=== PATIENT | female | born 1980 | race Caucasian/White ===

== ENCOUNTER 2021-11-01 05:43 | Day surgery (SDC) | payer SELFPAY, OTHER ==
[2021-10-28 15:32] LABS: Hematocrit 41.7 % (37-47); Hemoglobin 13.8 g/dL (12.0-15.0); Mean Corp Hgb Conc 33.1 g/dL (32-36); Mean Corpuscular Hgb 28.8 pg (27.0-32.0); Mean Corpuscular Volume 86.9 fL (81-99); Platelet Count 286 K/mm3 (150-450); RBC Distribution Width CV 12.7 % (11.6-14.6); White Blood Count 9.2 K/mm3 (4.4-11.0)
--- NOTE | 2021-10-29 10:18 | HP.PCM_ITS ---
History and Physical Date of Admission: 10/29/21 MR#:[id number]:[id number]: BOBY BRARRep #:[id number] Provider:Dr. Dipti Fonseca, DOAge/Sex: 41/F [facility] Vital Signs 10/22/21 13:09 Height 5 ft 2 in Weight: 149 lb 4 oz BMI 27.3 BP 130/82 H Intake Visit Reasons: consult for TBL combo surg. with Carlos? Allergies No Known Allergies Allergy (Verified 10/22/21 13:04) Medications NK 10/22/21 [History Confirmed 10/22/21] PFSH Surgical History (Updated 10/22/21 @ 13:07 by Dinah Rosenthal) S/P tubal ligation Social History (Updated 10/22/21 @ 13:07 by Dinah Rosenthal) Smoking Status: Never smoker alcohol intake: never substance use type: does not use caffeine: Yes what type of physical activity do you participate in: none additional social history: [facility] consult for TBL combo surg. with Carlos? Details: BOBY BRAR is a 41 year old who presents for tubal ligation consult. She is scheduled for a midurethral sling procedure with Dr. Gonzalez next Thursday and also desires sterility. She has has 7 vaginal deliveries and 1 tubal pr egnancy. She is unsure what side, but thinks she may only have one tube left. Pregancy History 8 Elective abortions Hx Para 7 Spontaneous abortions Hx # Term Pregnancies Ectopic pregnancies Hx # Pregnancies Multiple births # of living children Past Pregnancies Del. Date Name GA/Weeks Outcome Route Bth Weight Infant Gen Labor Lgth Anesthesia Del Locatn Provider FOB Unknown Cat Unknown Catarino Unknown Makayla Unknown Ayo Unknown Nazanin Unknown Leo Unknown Margarito ROS Const ROS Unobtainable: All systems reviewed & are unremarkable except as noted in H Resp Resp: Reports system reviewed and no additional complaints, except as documented; Denies cough GI GI: Reports as per HPI Psych Psych: Reports system reviewed and no additional complaints, except as documented Exam Const General: cooperative, healthy appearing, comfortable and no acute distress Resp Effort & Inspection: normal respiratory effort Skin General: no rashes or lesions noted Psych Appearance: grossly normal Speech and Movement: speech and movement normal Coding Level of Care Code Off vis,new,level 3 Diagnoses Incontinence of urine R32 Prolapsed bladder Contraceptive management Z30.9 Assessment and Plan Assessment and Plan (1) Incontinence of urine: Status: Acute (2) Prolapsed bladder: Status: Acute (3) Contraceptive management: Plan - Dr. Dipti Fonseca DO: I spent 20 minutes in this visit, with more than 50% of the time devoted to patient counseling. During this time we discussed the risks, benefits, and alternatives to tubal ligation. we discussed the permanency and that the procedure is irreversible. plan for laparoscopic salpingectomy either unilaterally or bilaterally if a second tube is still patent after her ectopic surgery. UPDATE- I have seen the patient and performed any clinically relevant updates to the history and physical exam. Dipti Fonseca DO
[2021-11-01] VITALS (9 sets, daily range): BP systolic 104–122; BP diastolic 61–73; PULSE 54–64; RESP 16; TEMP 36.2–36.8; O2SAT 98–100; BMI 26.6
--- NOTE | 2021-11-01 | FALS_PTH ---
PATIENT: BOBY BRAR LOC: [facility] [place] U#:[id number] AGE/SX: 41/F ROOM: RE11/01/[address]: Dr. Noel Gonzalez MD : 1980 BED: DIS: 11/01/2021 SPEC #: [id number] RECD: 11/01/21 11:31 STATUS: SINA PERES #: [id number] GUSTABO: 11/01/21 00:[address]: Noel Gonzalez DEPT: SURGICAL PATHOLOGY RECD BY: Jorgito Durham ENTERED: 11/01/21 11:31 SP TYPE: FALL TUBES OTHR DR: DO Dr. Rodrigo Watson MD Tissues: Fallopian tube Procedures: Surgery Specimen Level II HEADER OPERATION: Bilateral laparoscopic salpingectomy PRE-OP DIAGNOSIS: Sterilization TISSUE SUBMITTED: Bilateral fallopian tubes MICROSCOPIC DIAGNOSIS Bilateral fallopian tubes, salpingectomy: Bilateral fallopian tubes, no pathologic diagnosis. SJ:keanu 11/04/2021 MICROSCOPIC DESCRIPTION Slides are reviewed. GROSS DESCRIPTION Received in fixative is one container labeled with the patient's name and designated bilateral fallopian tubes. The specimen consists of bilateral fallopian tubes including fimbrial ends each measuring 6 cm in length and 0.5 cm in diameter. The fallopian tubes are not identified as right or left. Sections reveal unremarkable cut surfaces. Clinical Care Leader sections are submitted in two cassettes with each cassette containing one fallopian tube. / Antony 11/01/2021 TC:4 CPT: 77774 x2
[2021-11-01 06:26] LABS: Internal QC Validated? YES +Cl - CLEAR BKGD; Pregnancy, Urine Negative Negative
[2021-11-01] MEDS: Lactated Ringers 1,000 ML 15 ML IV (06:32)
--- NOTE | 2021-11-01 07:23 | PCM.DC ---
Discharge Instructions Diet Discharge Diet: No restrictions Activity Discharge Activity: Return to Normal Activity, May Not Drive (for two weeks or while taking narcotic pain medications.), May Shower and May Take a Tub Bath (in 7 days) May resume sexual activity in: 1 week Weight Bearing Status: Full weight bearing Dressing / Incision Call your doctor if you observe: Using more than 1 pad per hour, Shortness of breath, Chest pain and Uncontrolled pain Suture Line Care: Avoid Pulling/Pushing and Avoid Pinching/Bending Remove Dressing in: 1 week (if present) Cleanse incision/area with: Soap & Water and Keep Dressing Clean & Dry Follow Up Care Please Follow Up With: Dipti Fonseca DO When: Call to make an appointment with your doctor for a follow up incision check in 1-2 weeks. Test Results: Test results from this visit will be discussed in further detail at your follow-up appointment, if applicable. Discharge Plan Admission Primary Reason for Your Visit: tubal removal and sling procedure Attending Provider: Noel Gonzalez Primary Care Provider: Rodrigo Cervantes Consulting Providers: Dipti Fonseca Discharge Orders/Prescriptions Prescriptions: New ibuprofen 800 mg tablet 800 mg PO Q8H PRN (Reason: pain) 7 Days Qty: 30 RF: 0 oxycodone-acetaminophen [Percocet] 5-325 mg tablet 1 tab PO Q6H PRN (Reason: Pain (Scale Score 7-10)) 3 Days Qty: 18 RF: 0 No Action NK RF: 0 Referrals / Follow Up: Rodrigo Cervantes MD [Primary Care Provider] - Disposition Disposition (needs filled in before D/C Order can be placed): Home, Self Care
[2021-11-01] MEDS: Lidocaine 1% /Epi 1:100 (50ml) 50 ML VIAL (08:42)
[2021-11-01] MEDS: Bupivacaine 0.25% 30 ML Vial (08:42)
--- NOTE | 2021-11-01 08:52 | HP.PCM_ITS ---
HPI - General General Date of Admission: 10/29/21 HPI Narrative BOBY BRAR, is a 41 F who presents for placement of tension-free vaginal sling and also can have a combined procedure with gynecology. [facility] Medical History (Updated 10/25/21 @ 10:18 by America Mohan) Bladder disease Leg cramps Non-smoker Wears glasses Home Medications ciprofloxacin HCl [Cipro] 500 mg PO BID #10 tab 11/01/21 [Rx Last Taken Unknown] ibuprofen 800 mg PO Q8H PRN 7 Days #30 tab 11/01/21 [Rx Last Taken Unknown] oxycodone-acetaminophen [Percocet] 1 tab PO Q6H PRN 3 Days #18 tab 11/01/21 [Rx Last Taken Unknown] Allergy/AdvReac Type Severity Reaction Status Date / Time No Known Allergies Allergy Verified 11/01/21 06:19 Surgical History (Updated 11/01/21 @ 07:[address] Dipti Fonseca, DO) S/P tubal ligation Social History (Updated 10/22/21 @ 13:07 by Dinah Rosenthal) Smoking Status: Never smoker alcohol intake: never substance use type: does not use caffeine: Yes what type of physical activity do you participate in: none additional social history: -Arvind Vital Signs Vital Signs Vital Signs: 11/01/21 06:21 Temperature 98.2 F Temperature Source Temporal Pulse Rate 64 Respiratory Rate 16 Respiratory Pattern Normal Blood Pressure 119/69 Blood Pressure Mean 85 Blood Pressure Source Monitor Blood Pressure Position Semi-Fowlers Blood Pressure Location Right Arm Pulse Ox 98 Oxygen Delivery Method Room Air Weight Weight: 66 kg Body Mass Index (BMI) 26.6 Results Lab / Micro Data Result Diagrams: 10/28/21 15:05 Labs: Laboratory Results - last 24 hr 11/01/21 06:00: Urine Test Negative
--- NOTE | 2021-11-01 08:53 | OP.PCM_ITS ---
Report of Operation Date of Procedure: 11/01/21 Pre-Operative Diagnosis: Stress incontinence Post-Operative Diagnosis: The same Surgery/Procedure Performed:: TVT Sling Description of Surgical Findings:: Patient presents today for placement of a tension-free vaginal sling, she has a diagnosis of incontinence and has been evaluated in the preoperative setting. We discussed how the procedure will be done what to expect afterwards. She understands is possible she may need a catheter in the short-term. We discussed the risk of bleeding and also the possibility of infection with the placement of the sling. We discussed the fact that we can be using artificial mesh and that there is a small risk of infection, erosion into the urethra, vaginal area, bladder and a small risk that she may require surgery down the road to address any problems or erosions with the mesh in the long-term. She was also given no guarantees as to how well the sling would work and that her incontinence may not improved to her satisfaction. After reviewing this with the patient she agreed to proceed with the placement of the sling. Patient was taken back to the operating room, after smooth induction of general anesthesia she was placed in dorsolithotomy position. She underwent vaginal prep and was placed in dorsolithotomy position. A Brady catheter was placed into the bladder and Inflated with 10 cc of sterile water into the balloon. I then marked out the bladder neck with a marking pen and marked out the mid urethra. The urethra was then infiltrated with lidocaine with 1:1000 epinephrine, after the injecting into the urethra then a midline incision was made in the urethra long enough to create a space for the trocar. I then used curved Metzenbaum scissors to dissect periurethrally up to the right side underneath the pubic bone, and then dissect periurethrally up to the left side underneath the pubic bone creating the tunnel for the sling. I then went up to the pubic bone and the patient was in Trendelenburg position and marked two incision site 2 cm from the midline on the left and right side. I then infiltrated the skin with lidocaine and then made a small stab incision in the right and left side exactly where the recinos were above the pubic bone. Making sure that the bladder was completely empty I then guided the suprpubid desera trocar top-down on the right side first coming behind the pubic bone following it into the incision below the urethra. Once the suprapubic trocar was passed then I deflated the balloon and remove the Brady catheter went into the bladder with a 70 degree lens and inspected the bladder and there was no perforation damage or injury to the bladder, no damage to the ureter, and no damage to the urethra. I then hooked the end of the desara sling to the suprapubic trocar and advanced it up through the tunnel and then put a snap on the end of the sling. I then went to the other side to pass the sling. The 18fr Brady catheter was replaced into the bladder with 10 cc of water into the balloon and then drained the bladder completely and then I guided the suprapubic trocar down on the left side from top down behind the pubic bone into the incision below the urethra. I then deflated the balloon removed the Brady catheter and performed a cystoscopy again and inspected the bladder with a 70 degree there was no injury to the bladder, the ureter, or the urethra on inspection. I then grabbed the other end of the sling and using the suprapubic trocar pulled the sling on the other side and put a snap on the sling end. I then put a snap in the middle the sling and then both ends of the slings were then pulled up and then the sling was tensioned below the urethra ensuring that the sling was flat that there was no kinking or pulling or twisting and laid nicely tension-free underneath the urethra. Then both ends of the slings were cut and then the plastic sheath covering the mesh was removed deploying the sling, the excess mesh was then trimmed from the suprapubic area and the mesh ends were dunked down deep in the subcutaneous fat. The Brady catheter was removed and we checked the bladder with a 30 and 70 degree lens making sure there is no injury to the urethra, sarah dder and no perforation with a mesh. The urine was nice and clear with no blood. I then closed the incision below the urethra with a running 3-0 Vicryl and then closed the 2 suprapubic incisions with interrupted 4-0 Monocryl. The bladder was left empty anesthetic was reversed and she was taken back to the PACU and will undergo a voiding trial before discharge. Surgeon: berlin Type of Anesthesia: General Drains: no catheters Admit VTE Documentation VTE Present on Admission: No VTE Mechan Device Prophylaxis: SCD's VTE Pharm Prophylaxis ordered?: No
--- NOTE | 2021-11-01 08:53 | PCM.DC ---
Discharge Instructions Diet Discharge Diet: No restrictions Activity May resume sexual activity in: 1 week Weight Bearing Status: Full weight bearing Dressing / Incision Call your doctor if you observe: Using more than 1 pad per hour, Shortness of breath, Chest pain and Uncontrolled pain Suture Line Care: Avoid Pulling/Pushing and Avoid Pinching/Bending Cleanse incision/area with: Soap & Water and Keep Dressing Clean & Dry Follow Up Care Please Follow Up With: Dipti Fonseca DO Test Results: Test results from this visit will be discussed in further detail at your follow-up appointment, if applicable. Discharge Plan Admission Primary Reason for Your Visit: tubal removal and sling procedure Attending Provider: Noel Gonzalez Primary Care Provider: Rodrigo Cervantes Consulting Providers: Dipti Fonesca Discharge Orders/Prescriptions Prescriptions: New ibuprofen 800 mg tablet 800 mg PO Q8H PRN (Reason: pain) 7 Days Qty: 30 RF: 0 oxycodone-acetaminophen [Percocet] 5-325 mg tablet 1 tab PO Q6H PRN (Reason: Pain (Scale Score 7-10)) 3 Days Qty: 18 RF: 0 ciprofloxacin HCl [Cipro] 500 mg tablet 500 mg PO BID Qty: 10 RF: 0 Referrals / Follow Up: Noel Gonzalez MD [STAFF PHYSICIAN] - Rodrigo Cervantes MD [Primary Care Provider] - Disposition Disposition (needs filled in before D/C Order can be placed): Home, Self Care
--- NOTE | 2021-11-01 09:24 | OP.PCM_ITS ---
Problems Associated Problem List Diagnoses (1) Contraceptive management: (2) Prolapsed bladder: (3) Incontinence of urine: Report of Operation Date of Procedure: 11/01/21 Pre-Operative Diagnosis: desires permanent sterility Post-Operative Diagnosis: desires permanent sterility Surgery/Procedure Performed:: laparoscopic bilateral salpingectomy Description of Surgical Findings:: Patient was taken in the operating room and was placed under general anesthesia was prepped and draped in normal sterile fashion in the dorsal lithotomy position. Bladder was drained of clear urine and SCDs were on preoperatively. Uterus was sounded and a uterine manipulator was placed after dilating. Attention was then paid to the abdominal portion of the procedure and the umbilicus was elevated injected with Marcaine and after a 5 mm incision was made and the 5 mm laparoscope was inserted into the abdomen and entered into the abdomen confirmed to be intra-abdominal with a low opening pressure of less than 5 mmHg. Abdomen was insufflated with CO2 gas and a 5 mm optical trocar was placed under direct visualization. A left lower quadrant 5 mm port and a 5 mm port, lateral to umbilicus, were placed under direct visualization. Uterus was well visualized and bilateral fallopian tubes identified and bilateral tubes were elevated and transecting across the mesosalpinx and the attachment to the uterine corpus bilaterally the tubes were removed without complication using the ligasure device. Excellent hemostasis was noted. Fallopian tubes were removed through the lower port sites without complication. Liver and upper abdomen were visualized notably within normal limits and no other gross abnormalities were seen in the abdomen. All instruments removed from the abdomen after gas was desufflated. Port sites were closed with 3-0 Monocryl Steri's and op sites were applied. All instruments removed from the vagina and patient was awoken and taken recovery in stable condition. Surgeon: Jeana adjudication specialist: None (coil repair technician ) Type of Anesthesia: General Estimated Blood Loss (mL): 0 Complications none Multi Select Codes Urinary/Genital Urinary/Genital CPT Codes: 58070 Laproscopic BS/O
== END 2021-11-01 23:59 | disposition home or self-care (01) ==
LOC: SDC 05:46 → AC 05:46
PROVIDERS: Anesthesiology; Obstetrics & Gynecology; PCP Family Medicine; Referring Provider Urology; Visit Provider Urology
PROC: (CPT 58661; principal; 2021-11-01 07:15)
PROC: 0TJB8ZZ Inspection of Bladder, Via Natural or Artificial Opening Endoscopic (ICD-10-PCS; CPT 57288; 2021-11-01 07:15)
DX: N39.3 Stress incontinence (female) (male) (principal); N81.10 Cystocele, unspecified; Z30.2 Encounter for sterilization
CPT/HCPCS: 51992; 58661; 00860; 36415; 81025; 85027; 86850; 86900; 86901; 87426; 88302; C9803; J7120; C1771; J0330; J2405

== ENCOUNTER 2021-11-13 07:46 | Day surgery (SDC) | payer SELFPAY, OTHER ==
[2021-11-13] VITALS (7 sets, daily range): BP systolic 107–121; BP diastolic 61–82; PULSE 60–66; RESP 14–18; TEMP 36.4–37.1; O2SAT 98–100; BMI 25.7
[2021-11-13] MEDS: Lactated Ringers 1,000 ML 15 ML IV (08:42)
[2021-11-13] MEDS: Lubricating Jelly 60 GM Tube 30 GM (09:22)
--- NOTE | 2021-11-13 09:23 | PCM.HP.STD ---
HPI - General HPI Narrative BOBY BRAR, is a 41 F who presents for release of sling, she has a sling place 2 weeks ago and has failed 2 voiding trials, today could only void 100ml with PVR 600cc so today plan to take her back to surgery for release or incision of sling, she understands possible this may impact the sling success rate. [facility] Medical History (Updated 11/11/21 @ 11:28 by Mary Perez) Bladder disease History of ectopic Indwelling urethral catheter present Leg cramps Non-smoker Wears glasses Home Medications ciprofloxacin HCl [Cipro] 500 mg PO BID #10 tab 11/13/21 [Rx Last Taken Unknown] Allergy/AdvReac Type Severity Reaction Status Date / Time No Known Allergies Allergy Verified 11/11/21 11:15 Surgical History (Updated 11/11/21 @ 11:23 by Mary Perez) History of salpingectomy S/P tubal ligation Social History (Updated 10/22/21 @ 13:07 by Dinah Rosenthal) Smoking Status: Never smoker alcohol intake: never substance use type: does not use caffeine: Yes what type of physical activity do you participate in: none additional social history: -Arvind Vital Signs Vital Signs Vital Signs: 11/13/21 08:35 Temperature 97.9 F Temperature Source Temporal Pulse Rate 61 Respiratory Rate 16 Respiratory Pattern Normal Blood Pressure 115/76 Blood Pressure Mean 89 Blood Pressure Source Monitor Blood Pressure Position Semi-Fowlers Blood Pressure Location Left Arm Pulse Ox 100 Oxygen Delivery Method Room Air Weight Weight: 66 kg Body Mass Index (BMI) 25.7 Results Lab / Micro Data Micro: Microbiology 11/13/21 08:05 Interface Orders SARS-CoV-2 Antigen (Rapid) - Final
--- NOTE | 2021-11-13 09:25 | PCM.DC ---
Discharge Instructions Diet Discharge Diet: No restrictions Activity Discharge Activity: Return to Normal Activity and May Not Drive (while taking narcotic pain medications.) Dressing / Incision Call your doctor if you observe: Fever of 101 or Higher Additional Dressing/Incision Instructions:: home with out a telles if can void freely Follow Up Care Please Follow Up With: Noel Gonzalez MD When: Call [phone] for an appointment Test Results: Test results from this visit will be discussed in further detail at your follow-up appointment, if applicable. Discharge Plan Admission Primary Reason for Your Visit: release sling Attending Provider: Noel Gonzalez Primary Care Provider: Rodrigo Cervantes Discharge Orders/Prescriptions Prescriptions: New ciprofloxacin HCl [Cipro] 500 mg tablet 500 mg PO BID Qty: 10 RF: 0 Referrals / Follow Up: Noel Gonzalez MD [STAFF PHYSICIAN] - Rodrigo Cervantes MD [Primary Care Provider] - Disposition Disposition (needs filled in before D/C Order can be placed): Home, Self Care
[2021-11-13] MEDS: Lidocaine 1%/Epi 1:200 (30ml) 30 ML AMPUL (09:50)
--- NOTE | 2021-11-13 09:56 | PCM.OPRPT ---
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 Surgery/Procedure Performed:: Release of tension-free vaginal sling Description of Surgical Findings:: This is a 41-year-old female history of stress incontinence who underwent a tension-free vaginal sling about 2 weeks ago immediately after surgery she was not able to urinate so catheter was removed, a week later we remove the catheter for voiding trial and then she was able to urinate but ended up in the emergency room later on with retention of urine with over a liter of urine in her bladder we then did another voiding trial this morning and she was only able to urinate 100 cc she did not report a normal flow, just a dribble and postvoid residuals up to 600 cc. So therefore because of her inability empty her bladder sufficiently I'm recommending that we do a release of the sling unfortunately she understands that this could lead to poor results and potential stress incontinence but given the fact that she is not emptying her bladder I think it is necessary to release the sling and hopefully the sling will improve her bladder control but she may not have 100% results given her situation. Patient was taken back to the operating room after smooth induction of general anesthesia she was placed in dorsolithotomy position, the urethra and vaginal area were prepped and draped in usual sterile fashion, a weighted vaginal speculum was placed in the vagina I then used pickups and Metzenbaum scissors to cut the suture and then open up the midline incision below the urethra then using the tip of the curved Mayos I was able to get underneath the sling and identify the sling material I did not feel like it was exceedingly tight may be just a tiny bit of tension on the urethra so then carefully pulling down on the sling it was released a little bit lower I did not have to cut the sling and then after it was released it gave way a little bit and then I could see that there was actual gap between the sling and the urethra. I did fill the bladder up and we did push in the bladder unfortunately she did have some stress incontinence with the stress test but given the fact that the sling was only released a tiny bit I was concerned that tightening up the sling more would lead to retention of urine. I then closed the vaginal incision in a running layer with 3-0 Vicryl. I went in the bladder with a 30 degree cystoscope she does have a stretched out bladder and sort of a look atonic looking bladder with a large capacity. I inspected the bladder with 30 and 70 degree lens there is no sign of injury to the bladder or the urethra I then drained the bladder we left the catheter out and will see if she can urinate in the postop setting. Surgeon: Carlos Type of Anesthesia: General Drains: none Admit VTE Documentation VTE Present on Admission: No VTE Mechan Device Prophylaxis: SCD's VTE Pharm Prophylaxis ordered?: No
== END 2021-11-13 23:59 | disposition home or self-care (01) ==
LOC: SDC 07:49 → AC 07:50
PROVIDERS: PCP Family Medicine; Referring Provider Urology; Visit Provider Urology
PROC: (CPT 57287; principal; 2021-11-13 09:40)
DX: Z48.816 Encounter for surgical aftercare following surgery on the genitourinary system (principal); N39.3 Stress incontinence (female) (male); N31.2 Flaccid neuropathic bladder, not elsewhere classified
CPT/HCPCS: 57287; 00860; 87086; 87088; 87426; J7120; J2405